=== PATIENT | female | born 1970 | race Caucasian/White ===

== ENCOUNTER 2023-09-09 07:56 | Day surgery (SDC) | payer OTHER ==
[2023-09-09 08:37] LABS: Mean Platelet Volume 8.3; Platelet Count 164 k/uL (150-450)
[2023-09-09 08:48] VITALS: TEMP 98.2
[2023-09-09 08:48] LABS: INR 1.1 (<1.2); Prothrombin Time 11.6 sec (10.0-12.5)
[2023-09-09 08:51] LABS: African American GFR (CKD) 38 (>60 ml/min/1.73 sqM); Glucose 180 mg/dL (74-99); Non-African American GFR(CKD) 33 (>60 ml/min/1.73 sqM)
[2023-09-09] MEDS ORDERED: ALBUMIN HUMAN 25% 50 ML in EMPTY BAG 1 BAG IVPB ONE (09:30)
[2023-09-09] MEDS: ALBUMIN HUMAN 25% 50 ML in EMPTY BAG 1 BAG IVPB SCH ×3 (10:11→10:58)
[2023-09-09 11:12] VITALS: RESP 16
[2023-09-09 11:13] VITALS: BP 158/90; PULSE 72
--- NOTE | 2023-09-09 13:19 | US ---
EXAMINATION TYPE: US paracentesis abd w/image, therapeutic and diagnostic DATE OF EXAM: 09/09/2023 CLINICAL HISTORY: 53-year-old female K70.31, liver cirrhosis, biweekly paracentesis. The procedure was discussed with the patient. The risks, complications, benefits, and alternatives we re discussed and any questions were answered. Informed consent was obtained. The patient was placed s upine on the ultrasound table and prepped and draped in the usual sterile fashion. All elements of maximal barrier technique were utilized. Ultrasound was utilized to determine the pr ecise skin entry site along the left lower quadrant. Local anesthesia with 7 mL 1% lidocaine. Utilizing trocar technique and a 6 Mongolian safety centesis catheter system, access into the left lower quadrant ascites collection was obtained. Approximately 7.6 liters of straw-colored fluid was removed. A separate 60 mL syringe of ascites flui d was sent for laboratory analysis. The patient was stable throughout the procedure and remained stable upon discharge from Department of Radiology. IMPRESSION: Successful therapeutic and diagnostic paracentesis under ultrasound guidance. 7.6 L fluid removed. La boratory analysis pending.
[2023-09-09 20:23] LABS: Appearance,BF Clear (Clear)
== END 2023-09-09 11:35 | disposition home or self-care (01) ==
LOC: RADPROMAIN 07:56
PROVIDERS: ATTEND Internal Medicine Nephrology
DX: K74.60 Unspecified cirrhosis of liver (principal)
CPT/HCPCS: 89050; 82565; 82947; 85049; 85610; 49083; P9047

== ENCOUNTER → 2024-03-17 | Day surgery (SDC) | payer OTHER ==
[~2024-03-17] MED LIST: ALBUMIN HUMAN 25% (12.5gm) 50 ML VIAL ONE
--- NOTE | 2024-04-13 13:29 | US ---
Report Patient: Vera Antonio W Ordering Physician: Unknown, Unknown ID: [id number] Phone, Pager: Phone: N/A Pager: N/A : 1970 Age/Gender: 53Y, F Primary Location: N/A Procedure: US paracentesis abd w/image Study Date: 03/17/2024 1:38:00 PM EXAMINATION TYPE: US paracentesis abd w/image DATE OF EXAM: 04/05/2024 CLINICAL HISTORY: 53-year-old female referred for paracentesis. The procedure was discussed with the patient. The risks, complications, benefits, and alternatives we re discussed and any questions were answered. Informed consent was obtained. The patient was placed s upine on the ultrasound table and prepped and draped in the usual sterile fashion. All elements of maximal barrier technique were utilized. Ultrasound was utilized to determine the precise skin entry site along the right lower quadrant. Utilizing 5 Pashto one-step catheter, access into the right lower quadrant was obtained with direct u ltrasound guidance. Approximately 6.2 liters of fluid was removed. The patient was stable throughout the procedure and re mained stable upon discharge from Department of Radiology. IMPRESSION: Successful paracentesis under ultrasound guidance. 6.2 L of fluid removed.
== END ==
LOC: RADPROMAIN 12:31
PROVIDERS: ATTEND Internal Medicine
DX: R18.8 Other ascites (principal)
CPT/HCPCS: 49083; 82565; 85049; 85610